=== PATIENT | male | born 2005 | race Caucasian/White ===

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

== ENCOUNTER 2024-07-16 20:53 | Emergency (ER) | payer BC, MEDICAID, SELFPAY ==
[2024-07-16 21:15] VITALS: BP 128/85; PULSE 114; RESP 18; TEMP 36.6; O2SAT 97
--- NOTE | 2024-07-16 21:37 | XRR_ITS ---
PROCEDURE INFORMATION: Exam: XR Left Knee Exam date and time: 07/16/2024 9:43 PM Age: 19 years old Clinical indication: Pain; Knee; Left; Additional info: Acute knee pain TECHNIQUE: Imaging protocol: Radiologic exam of the left knee. Views: 3 views. COMPARISON: No relevant prior studies available. FINDINGS: Bones/joints: No acute fracture or dislocation. Somewhat geographic areas of sclerosis along the medial tibia with a narrow zone of transition. Soft tissues: Normal. XR/XR knee LT 3V* [id number] IMPRESSION: 1. No acute osseous findings. 2. Geographic sclerotic region in the proximal tibia could be from a prior infectious or vascular insult. Neoplasm not entirely excluded. Consider nonemergent MRI without and with contrast for further evaluation.
--- NOTE | 2024-07-16 23:10 | PC.NURSE ---
informed MD about pt request for pain medication at 0401
--- NOTE | 2024-07-16 23:14 | PC.NURSE ---
informed pt and family member that photographing staff is inappropriate and not allowed. pt informed that RN is awaiting order for pain medication and would administer as soon as available. both verbalized understanding.
--- NOTE | 2024-07-16 23:53 | W.ED.EXTPRO ---
HPI - Extremity Problem General: Chief complaint: Extremity Injury, Lower Stated complaint: Left knee/ leg injury Time Seen by Provider: 07/16/24 21:37 History of Present Illness: The patient presented to the emergency department with acute knee pain and swelling. The injury occurred just before arrival at the hospital, with the patient rushing to seek medical attention. The patient reports pain primarily in the back of the knee. There is some swelling noted in this area. The pain does not appear to be severe, as the patient indicates that palpation of the area is not bad. The patient's ability to bend the knee is somewhat limited, as evidenced by the doctor's instructions to bend it during the examination. No specific aggravating or alleviating factors were mentioned. The patient did not report any associated symptoms beyond the localized pain and swelling. The impact on daily functioning was not explicitly discussed, but the acute nature of the injury suggests it may be affecting the patient's mobility. Related Data Previous Rx's ?Medication ?Instructions ?Recorded naproxen 500 mg tablet (Naprosyn) 500 mg PO BID PRN pain #20 tabs 03/09/23 Allergies Allergy/AdvReac Type Severity Reaction Status Date / Time No Known Allergies Allergy Verified 07/16/24 21:17 Review of Systems General: Reports: 10 or more systems reviewed and unremarkable except in HPI and below Physical Exam Const: COMMON NORMALS: no acute distress, patient oriented x3, healthy appearing, alert and well nourished HENMT: COMMON NORMALS: normocephalic HEAD & SCALP: normocephalic Eye: COMMON NORMALS: EOMs intact bilaterally Neck/C-Spine: COMMON NORMALS: full ROM and supple Resp: COMMON NORMALS: normal respiratory effort, No retractions and clear to auscultation bilaterally AUSCULTATION: clear to auscultation bilaterally Cardio: COMMON NORMALS: regular rate, regular rhythm, No gallops present (Cardio) and No murmurs present (Cardio) RATE: regular rate RHYTHM: regular rhythm GI: COMMON NORMALS: Soft to palpation and non-tender PALPATION: Yes Soft to palpation Extremity: GENERAL: Yes normal exam except as noted LEFT LOWER EXTREMITY: Yes knee joint Left knee: Yes inspection, Yes palpation (Tenderness to palpation behind the knee at the origin of gastroc), Yes ROM, Yes neurovascular exam and Yes special tests Left knee special tests: Augustin?s test: Negative, Ryley test: Negative, Posterior sag (gravity drawer) test: Negative, Anterior drawer sign: Negative, Anterior Shanique test: Negative, Posterior Shanique test: Negative, Valgus stress test: Negative and Varus stress test: Negative Neuro: COMMON NORMALS: patient oriented x3 SENSORIUM/ORIENTATION: Yes alert Skin: COMMON NORMALS: no rashes or lesions noted GENERAL SKIN EXAM: no rashes or lesions noted Course Vital Signs: Vital signs: Vital Signs Temperature 97.8 F 07/16/24 21:15 Pulse Rate 99 07/17/24 00:01 Respiratory Rate 18 07/16/24 21:15 Blood Pressure 128/85 07/16/24 21:15 Pulse Oximetry 98 07/17/24 00:01 Oxygen Delivery Me thod Room Air 07/16/24 21:15 MDM - Extremity (Nontraumatic) Medical Decision Making uspected Gastrocnemius Strain - Assessment: Based on physical examination findings, including minimal swelling, intact ligaments (ACL, PCL, LCL, MCL), and negative X-ray for fracture, the primary diagnosis is suspected to be a gastrocnemius strain. The patient reports pain in the back of the knee, and there is observable swelling in the calf area. Ligament tests were performed and found to be normal. The location of pain and swelling suggests involvement of the calf muscle rather than intrinsic knee structures. - Plan: - Administer NSAID injection for pain relief - Recommend RICE protocol (Rest, Ice, Compression, Elevation) - Advise follow-up with primary care physician for further evaluation - Recommend outpatient MRI of the knee to further assess soft tissue injury and evaluate incidental finding on X-ray Lab Data Radiology Impressions Knee X-Ray 07/16/24 21:37 IMPRESSION: 1. No acute osseous findings. 2. Geographic sclerotic region in the proximal tibia could be from a prior infectious or vascular insult. Neoplasm not entirely excluded. Consider nonemergent MRI without and with contrast for further evaluation. All radiology interpretation(s) finalized by discharge Discharge Plan Discharge Patient Disposition: Home Clinical Impression: Acute pain of left knee Condition: Stable Prescriptions: No Action Naprosyn 500 mg tablet 500 mg PO BID PRN (Reason: pain) Qty: 20 0RF Discharge Orders: Discharge ED (Routine); Ordered 07/16/24 Ordered By: Bernardino Law Discharge Diet: Advance as tolerated Discharge Activity: Increase activity as tolerated Patient Instructions: Opioid Safety, Pain Management Activity Restrictions/Additional Instructions: Tylenol or ibuprofen for pain. You will need an MRI of that knee to follow-up for the incidental finding on the x-ray today. Please return to the emergency department any new or worsening symptoms. Print Language: Haitian Coding Level of Care Code ED Sr Risk Management Consultant for Katiuska Aj
[2024-07-17 00:01] VITALS: PULSE 99; O2SAT 98
== END 2024-07-17 00:01 | disposition home or self-care (01) ==
PROVIDERS: Emergency Provider General Practice
DX: M25.562 Pain in left knee (principal); X58.XXXA Exposure to other specified factors, initial encounter
CPT/HCPCS: 73562; 99284

== ENCOUNTER 2024-09-19 11:03 | Outpatient (CLI) | payer MEDICAID, SELFPAY ==
--- NOTE | 2024-09-19 11:07 | MR_ITS ---
WS: [id number] MRI OF THE LEFT KNEE WITHOUT AND WITH GADOLINIUM ENHANCEMENT. INDICATION: LEFT knee pain lateral side TECHNIQUE: Axial PD coronal PD sagittal PD sagittal PD fat-sat sagittal PD ACL coronal T2 fat multiplanar post gadolinium imaging with fat saturation technique. FINDINGS: Some images degraded by motion. Distal quadriceps and patella tendons are intact. Hypertrophic patella. ACL appears intact. Normal PCL. Slight increased T2 signal in the ACL which appears intact. Recommend correlation for ACL sprain. No discrete tear is identified. Trace suprapatellar fluid. Mild chondromalacia patella worse in the lateral patella facet. No dislocation. Medial and lateral patellar retinaculum appear intact. Normal popliteal fossa. Fibular head appears normal. Medial and lateral collateral ligaments appear intact. Fibular head appears normal. Normal popliteus. Normal biceps femoris. Medial and lateral meniscus are somewhat thin for a patient this age but no evidence of acute tear. Osteochondral injury with full-thickness cartilage defect and underlying edema involving the weightbearing articular surface of the lateral femoral condyle. This measures approximately 6 mm in transverse dimension. Underlying subchondral edema. Recommend correlation with lateral weightbearing knee pain. This is difficult to visualize on the sagittal imaging due to location and slice thickness. Sclerotic lesion with a narrow zone of transition along the medial tibial metadiaphysis. No significant enhancement. On the recent radiograph this is seen to extend further down the tibial shaft approximately 6 to 7 cm. Primary differential consideration is a sclerotic nonossifying fibroma. MR/MR knee LT wo/w con [id number] IMPRESSION: 1. Partially visualized sclerotic lesion involving the metadiaphysis medial t ibial shaft. This measures approximately 4.4 x 1.2 cm and slightly extends off the [id number]. Recommend follow-up with radiographs for surveillance. On e recent radiograph this extends further down the tibial shaft approximately 6- 7 cm. Primary differential consideration is a nonossifying fibroma with scleros is. Recommend correlation with any pain in this area. 2. Osteochondral defect involving the weightbearing surface of the lateral fem oral condyle measuring 6 mm in transverse dimension with subchondral edema. Ful l-thickness cartilage defect. This is presumably due to recent trauma. Recommen d orthopedic consultation. 3. 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 4. Somewhat increased T2 signal in the ACL which appears grossly intact recomm end correlation for ACL sprain. Normal PCL.
[2024-09-19] MEDS: gadobenate dimeglumine 20 mL vial IV (11:48)
== END 2024-09-19 11:04 | disposition home or self-care (01) ==
LOC: RAD 11:04
PROVIDERS: PCP Family Medicine; Visit Provider Family Medicine
DX: M22.42 Chondromalacia patellae, left knee (principal); M21.852 Other specified acquired deformities of left thigh; M89.9 Disorder of bone, unspecified
CPT/HCPCS: 73723

== ENCOUNTER 2024-10-07 13:32 | Outpatient (CLI) | payer MEDICAID, SELFPAY | END 2024-10-07 13:33 | disposition home or self-care (01) | LOC: SPT 13:32 | PROVIDERS: PCP Family Medicine; Visit Provider Student in an Organized Health Care Education/Training Program | DX: Z46.89 Encounter for fitting and adjustment of other specified devices (principal); M89.9 Disorder of bone, unspecified; M25.562 Pain in left knee | CPT/HCPCS: 97760; L1812 ==

== ENCOUNTER 2024-10-20 09:31 | Outpatient (RCR) | payer BC, MEDICAID, SELFPAY | END 2024-10-26 23:59 | disposition home or self-care (01) | LOC: SPT 09:31 | PROVIDERS: Visit Provider Student in an Organized Health Care Education/Training Program | DX: M25.562 Pain in left knee (principal) | CPT/HCPCS: 97161 ==

== ENCOUNTER 2024-10-21 07:43 | Outpatient (CLI) | payer BC, MEDICAID, SELFPAY ==
--- NOTE | 2024-10-21 08:45 | MR_ITS ---
WS: [id number] MRI LEFT LOWER LEG WITH AND WITHOUT CONTRAST. COMPARISON: Knee MRI 09/19/2024, radiograph 07/16/2024 Multiplanar, multisequence imaging is performed with and without contrast. MultiHance 20 mL. MRI of the LEFT lower extremity centered on the tibia. The study is not sufficient to reevaluate within the joint. Area of cortical thickening is low signal on all sequences involving the medial tibial metadiaphysis extending over a length of 7.7 cm. Diameter of the signal abnormality is 1.2 cm. On the postcontrast imaging there is no enhancement. There is no elevation of the cortex or aggressive appearance of this lesion. The remaining tibial cortex is normal. Normal marrow signal. No muscle loss or edema. MR/MR lower leg LT wo/w con [id number] IMPRESSION: 1. Marked tibial cortical thickening involving the medial proximal metadiaphys is. Area of sclerosis extends over a length of 7.7 cm with a transverse diamete r of 1.2 cm. No enhancement. Nonaggressive lesion and no change since 09/19/2024 . There is no enhancement. Differential would include nonossifying fibroma, os teoid osteoma (no nidus identified), chronic osteomyelitis, melorheostosis, low -grade bone lesions. Bone scan may provide additional information concerning ad ditional sites of abnormality and increased uptake. If there is pain associated with this bone lesion biopsy may be of benefit. 2. No edema or soft tissue component or bone destruction.
[2024-10-21] MEDS: gadobenate dimeglumine 20 mL vial IV (09:18)
== END 2024-10-21 07:44 | disposition home or self-care (01) ==
LOC: RAD 07:44
PROVIDERS: Visit Provider Student in an Organized Health Care Education/Training Program
DX: M89.362 Hypertrophy of bone, left tibia (principal); M85.862 Other specified disorders of bone density and structure, left lower leg; R93.6 Abnormal findings on diagnostic imaging of limbs
CPT/HCPCS: 73720